=== PATIENT | male | born 1980 | race Hispanic/Latino ===

== ENCOUNTER 2017-12-03 06:50 | Emergency (ER) | payer OTHER ==
[2017-12-03] MEDS ORDERED: Ondansetron PF 4 MG/2 ML Vial ONE (07:17)
[2017-12-03 07:27] LABS: #Basophils 0.1 thou/uL (0.0-0.2); #Eosinphils 0.2 thou/uL (0.0-0.7); #Lymphocytes 1.9 thou/uL (1.20-3.40); #Monocytes 0.7 thou/uL (0.11-0.59); #Neutrophils 5.8 thou/uL (1.40-6.50); %Basophils 1.7 % (0.0-1.0); %Eosinophils 2.8 % (0.0-10.0); %Lymphocytes 21.7 % (21.0-51.0); %Monocytes 8.2 % (0.0-10.0); %Neutrophils 65.6 % (42.0-75.0); Hemoglobin 15.2 g/dL (14.0-18.0); Mean Corpuscular HGB CONC 35.4 g/dL (32.0-36.0); Mean Corpuscular Hemoglobin 29.6 pg (27.0-31.0); Mean Corpuscular Volume 83.7 fL (78.0-98.0); Mean Platelet Volume 8.5 fL (7.4-10.4); Platelet Count 216 thou/uL (130-400); RBC Distribution Width 10.6 % (11.5-14.5); Red Blood Cell (RBC) Count 5.15 mill/uL (4.70-6.10); White Blood Cell (WBC) Count 8.9 thou/uL (4.8-10.8)
[2017-12-03 07:40] LABS: ALT (SGPT) 177 U/L (8-55); AST (SGOT) 231 U/L (5-34); Albumin 4.2 g/dL (3.5-5.0); Alkaline Phosphatase 80 U/L (40-150); Anion Gap 13 mmol/L (10-20); BUN (Urea Nitrogen) 11 mg/dL (8.9-20.6); Bilirubin, Total 1.7 mg/dL (0.2-1.2); Calc. Creatinine Clearance 0 mL/min (70-130); Calcium 9.5 mg/dL (7.8-10.44); Carbon Dioxide 22 mmol/L (22-29); Chloride 108 mmol/L (98-107); Estimated GFR-MDRD Greater than 90; Globulin 3.8 g/dL (2.4-3.5); Glucose 103 mg/dL (70-105); Lipase 71 U/L (8-78); Potassium 3.8 mmol/L (3.5-5.1); Sodium 139 mmol/L (136-145)
[2017-12-03 07:41] LABS: CKMB 1.3 ng/mL (0-6.6); Troponin I Less than 0.010 ng/mL (< 0.028)
[2017-12-03] MEDS ORDERED: Ketorolac Tromethamine 30 MG/ML VIAL ONE (08:33)
[2017-12-03 08:39] LABS: Bilirubin Negative (Negative); Blood, Urine Negative (Negative); Clarity Clear (Clear); Glucose, Urine (Dipstick) Negative (Negative); Leukocyte Negative (Negative); Nitrite Negative (Negative); Protein, Urine (Dipstick) Negative (Neg-Trace); Specific Gravity, Urine 1.015 (1.005-1.030); Urobilinogen > or = 8.0 mg/dL (0.2-1.0); pH, Urine 7.5 (5.0-9.0)
[2017-12-03] MEDS ORDERED: Iopamidol 370 76% 100 ML VIAL ONE (09:00)
--- NOTE | 2017-12-03 09:04 | CT ---
ABDOMEN AND PELVIC CT SCAN WITH IV CONTRAST: Date: 12/03/17 HISTORY: 37-year-old male with abdominal pain, more severe in the left lower quadrant, but also epigastric reji n. FINDINGS: Visualized lung zones are clear. There is some very subtle increased density in the neck of the gallbladder which may just represent s ome mucosal folds, but it would be difficult to absolutely exclude some small, noncalcified stones. N o gallbladder wall thickening or pericholecystic fluid. Pancreas, spleen, and adrenal glands are unre markable. 1.0 cm low attenuation focus in the right renal cortex, incompletely characterized but stat istically a cyst. No obstructing calculus. There is a tiny upper pole right renal calculus. Normal appearing appendix. No abscess, adenopathy, or abnormal fluid collection within the abdomen or pelvi s. IMPRESSION: Tiny, nonobstructing right renal calculus. No evidence for obstruction. Small probable right renal cyst. No other significant acute process. POS: [facility]
== END 2017-12-03 08:38 | disposition home or self-care (01) ==
LOC: SCSER 06:50
DX: R10.32 Left lower quadrant pain (principal); Z87.891 Personal history of nicotine dependence
CPT/HCPCS: 74177; 80053; 81003; 82553; 83690; 84484; 85025; 93005; 96374; 96375; J1885; J2405